=== PATIENT | female | born 1990 | race Caucasian/White ===

== ENCOUNTER → 2017-09-22 | Outpatient (CLI) | payer OTHER ==
[~2017-09-22] MED LIST: NICO21PAT TD; VENL37.52 PO; VENL75CA2 PO
--- NOTE | 2017-09-22 15:53 | REP ---
OB ULTRASOUND: Real-time sonographic evaluation of the gravid uterus is performed. There is a single living intrauterine gestation. Estimated gestational age is 18 weeks 5 days based on LMP with ADC 02/18/2018. Today's measurements indicate appropriate growth. BPD 39 mm = 17 weeks 5 days, 14th percentile HC 143 mm = 17 weeks 4 days, 7th percentile AC 127 mm = 18 weeks 2 days, 41st percentile FL 26 mm = 17 weeks 6 days, 23rd percentile HC/AC ratio 1.12, within normal range. Estimated weight 220 grams, 23rd percentile. Cervix is closed and measures 3.7 cm in length. heart rate 147 beats per minute. 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 position: Breech Placenta: Posterior and grade 0 with no previa or abruption. Amniotic fluid: Within normal limits. Signed by Jae Rodriguez MD 09/22/2017 03:57 P
== END ==
LOC: M SMT 13:01
PROVIDERS: ATTEND Obstetrics & Gynecology
DX: Z34.82 Encounter for supervision of other normal pregnancy, second trimester (principal)

== ENCOUNTER → 2017-09-29 | Outpatient (CLI) | payer OTHER | LOC: M SMT 09:59 | DX: Z36.89 Encounter for other specified antenatal screening (principal) | CPT/HCPCS: 36415 ==

== ENCOUNTER → 2017-11-24 | Outpatient (CLI) | payer OTHER ==
[2017-11-24 14:18] LABS: HEMATOCRIT 33.7 % (36.0-47.0); HEMOGLOBIN 11.3 g/dl (12.0-16.0); MEAN CORPUSCULAR HEMOGLOBIN 28.6 pg (27.0-33.0); MEAN CORPUSCULAR HGB CONC 33.5 g/dl (32.0-36.5); MEAN CORPUSCULAR VOLUME 85.3 fl (80.0-96.0); PLATELET COUNT, AUTOMATED 315 10^3/uL (150-450); RED BLOOD COUNT 3.95 10^6/uL (4.00-5.40); RED CELL DISTRIBUTION WIDTH 13.5 % (11.5-14.5); WHITE BLOOD COUNT 14.1 10^3/uL (4.0-10.0)
[2017-11-24 14:38] LABS: GLUCOSE CHALLENGE TEST 1 HOUR 158 MG/DL (LESS THAN 140)
[2017-11-27 08:55] LABS: RH ONLY RHOGAM 1 1
== END ==
LOC: M SMT 09:37
DX: Z34.82 Encounter for supervision of other normal pregnancy, second trimester (principal); Z36.89 Encounter for other specified antenatal screening
CPT/HCPCS: 82950

== ENCOUNTER → 2017-12-13 | Outpatient (CLI) | payer OTHER ==
[2017-12-13 08:45] LABS: GLUCOSE, FASTING 103 MG/DL (LESS THAN 95)
[2017-12-13 10:01] LABS: 1 HR GLUCOSE 162 MG/DL (LESS THAN 180)
[2017-12-13 10:47] LABS: 2 HR GLUCOSE 147 MG/DL (LESS THAN 155)
[2017-12-13 12:00] LABS: 3 HR GLUCOSE 121 MG/DL (LESS THAN 140)
== END ==
LOC: M LAB 07:51
DX: R73.02 Impaired glucose tolerance (oral) (principal)
CPT/HCPCS: 82951

== ENCOUNTER 2018-01-21 22:42 | Inpatient (IN) | payer OTHER ==
[2018-01-21] MEDS: LACTATED RINGER'S 1000 ML IV (23:15)
[2018-01-21] MEDS: LR 1,000 ML IV (23:15)
[2018-01-21 23:37] LABS: HEMATOCRIT 27.6 % (36.0-47.0); HEMOGLOBIN 9.3 g/dl (12.0-15.5); MEAN CORPUSCULAR HEMOGLOBIN 28.4 pg (27.0-33.0); MEAN CORPUSCULAR HGB CONC 33.7 g/dl (32.0-36.5); MEAN CORPUSCULAR VOLUME 84.4 fl (80.0-96.0); PLATELET COUNT, AUTOMATED 313 10^3/uL (150-450); RED BLOOD COUNT 3.27 10^6/uL (4.00-5.40); RED CELL DISTRIBUTION WIDTH 15.1 % (11.5-14.5); WHITE BLOOD COUNT 15.9 10^3/uL (4.0-10.0)
[2018-01-22] MEDS: LR 1,000 ML IV ×3 (03:29→12:15)
[2018-01-22] MEDS: PRENATAL VITAMINS CHEWABLE TABLET PO (09:00)
[2018-01-22] MEDS: BUPRENORPHINE/NALOXONE 2-0.5MG SUBLINGUAL TABLET(SUBOXONE) SL (09:20)
[2018-01-22] MEDS: BUPRENORPHINE/NALOXONE 8-2MG SUBLINGUAL TABLET(SUBOXONE) SL (09:20)
[2018-01-22] MEDS ORDERED: LR 1,000 ML IV (09:31)
[2018-01-22] MEDS ORDERED: BICITRA 30ML SOLN UDC As Ordered (09:52)
[2018-01-22 10:35] LABS: HEMATOCRIT 30.6 % (36.0-47.0); HEMOGLOBIN 10.6 g/dl (12.0-15.5); MEAN CORPUSCULAR HGB CONC 34.6 g/dl (32.0-36.5); MEAN CORPUSCULAR VOLUME 83.6 fl (80.0-96.0); PLATELET COUNT, AUTOMATED 221 10^3/uL (150-450); RED BLOOD COUNT 3.66 10^6/uL (4.00-5.40); RED CELL DISTRIBUTION WIDTH 15.2 % (11.5-14.5); WHITE BLOOD COUNT 10.3 10^3/uL (4.0-10.0)
[2018-01-22] MEDS: BICITRA 30ML SOLN UDC PO (10:37)
[2018-01-22] MEDS: LACTATED RINGER'S 1000 ML IV (10:44)
[2018-01-22] MEDS ORDERED: MORPHINE PRES-FREE INJ 10 MG/10 ML VIAL (J2274) As Ordered (10:45)
[2018-01-22] MEDS ORDERED: METOCLOPRAMIDE INJ 10MG/2ML VIAL (J2765) IV ×2 (10:52→12:15)
[2018-01-22] MEDS ORDERED: NALBUPHINE HCL 10 MG/ML AMP (J2300) IV (10:52)
[2018-01-22] MEDS ORDERED: NALOXONE INJ 0.4 MG/1 ML VIAL (J2310) IV ×2 (10:52)
[2018-01-22] MEDS ORDERED: ONDANSETRON 4MG/2ML VIAL (J2405) IV ×3 (10:52→12:15)
[2018-01-22] MEDS ORDERED: OXYTOCIN INJ 10 UNITS/ML VIAL (J2590) As Ordered (11:24)
[2018-01-22] MEDS ORDERED: PHENYLephrine HCL 500 MCG/5 ML (100MCG/ML) SYRINGE (J2370) As Ordered (11:24)
[2018-01-22] MEDS ORDERED: ePHEDrine SULFATE 25 MG/5 ML(5MG/ML) SYRINGE As Ordered (11:24)
[2018-01-22] MEDS ORDERED: dexameTHASONE 4 MG/ML 1ML VIAL (J1100) As Ordered (11:31)
[2018-01-22] MEDS ORDERED: ONDANSETRON 4MG/2ML VIAL (J2405) As Ordered (11:31)
[2018-01-22 11:33] LABS: CORD GAS ABE A -4.6; CORD GAS HCO3 A 22.7 MEQ/L; CORD GAS O2 SAT A 62.8 %; CORD GAS PCO2 A 50.5 mmHg; CORD GAS PO2 A 28.7 mmHg; CORD GAS SBC A 19.9 MEQ/L; CORD GAS TCO2 A 24.2 MEQ/L
[2018-01-22 11:35] LABS: CORD GAS ABE V -1.6; CORD GAS O2 SAT V 47.8 %; CORD GAS PCO2 V 49.6 mmHg; CORD GAS PH V 7.321 UNITS; CORD GAS PO2 V 20.8 mmHg; CORD GAS SBC V 21.9 MEQ/L; CORD GAS TCO2 V 26.6 MEQ/L
[2018-01-22] MEDS ORDERED: DOCUSATE SODIUM 100 MG CAP PO (12:00)
[2018-01-22] MEDS ORDERED: PERCOCET 5MG/325MG TAB PO (12:15)
[2018-01-22] MEDS ORDERED: fentaNYL 100 MCG/2 ML INJECTION (J3010) IV (12:15)
[2018-01-22] MEDS ORDERED: fentaNYL 100 MCG/2 ML INJECTION (J3010) As Ordered (12:28)
[2018-01-22 13:02] LABS: AMPHETAMINES URINE REFLEX NEGATIVE (NEGATIVE); BARBITURATES URINE REFLEX NEGATIVE (NEGATIVE); BENZODIAZEPINES URINE REFLEX NEGATIVE (NEGATIVE); CANNABINOIDS URINE REFLEX NEGATIVE (NEGATIVE); COCAINE METABOLITE URINE REFLE NEGATIVE (NEGATIVE); METHADONE URINE REFLEX NEGATIVE (NEGATIVE); OPIATES URINE REFLEX NEGATIVE (NEGATIVE); PHENCYCLIDINE URINE REFLEX NEGATIVE (NEGATIVE)
[2018-01-22] MEDS: MEASLES,MUMPS,RUBELLA VACCINE INJ (MMR-II) (90707) SC (13:12)
[2018-01-22] MEDS: PERCOCET 5MG/325MG TAB PO (15:43)
[2018-01-22] MEDS: KETOROLAC 30 MG/ML VIAL (J1885) IV (18:00)
[2018-01-23] MEDS: KETOROLAC 30 MG/ML VIAL (J1885) IV ×3 (00:20→12:31)
[2018-01-23 06:51] LABS: HEMATOCRIT 27.8 % (36.0-47.0); HEMOGLOBIN 9.4 g/dl (12.0-15.5); MEAN CORPUSCULAR HEMOGLOBIN 28.4 pg (27.0-33.0); MEAN CORPUSCULAR HGB CONC 33.8 g/dl (32.0-36.5); PLATELET COUNT, AUTOMATED 213 10^3/uL (150-450); RED BLOOD COUNT 3.31 10^6/uL (4.00-5.40); RED CELL DISTRIBUTION WIDTH 15.1 % (11.5-14.5)
[2018-01-23] MEDS: BUPRENORPHINE/NALOXONE 2-0.5MG SUBLINGUAL TABLET(SUBOXONE) SL (08:42)
[2018-01-23] MEDS: BUPRENORPHINE/NALOXONE 8-2MG SUBLINGUAL TABLET(SUBOXONE) SL (08:42)
[2018-01-23] MEDS: PRENATAL VITAMINS CHEWABLE TABLET PO (08:42)
[2018-01-23 13:17] LABS: FETAL SCREEN PROF. 1 1
[2018-01-23] MEDS: RHOGAM 300 MCG (1500 IU) INJ (J2790) IM (13:54)
[2018-01-23] MEDS ORDERED: IBUPROFEN 800 MG TAB PO (20:00)
== END 2018-01-23 14:55 | disposition home or self-care (01) | DRG 540 ==
LOC: M LDO 22:42 → M LDI 01-22 09:34 → M OBS 01-22 13:37
PROC: 10D00Z1 Extraction of Products of Conception, Low, Open Approach (ICD-10-PCS; principal; 2018-01-22 10:51)
DX: O76 Abnormality in fetal heart rate and rhythm complicating labor and delivery (principal); F17.200 Nicotine dependence, unspecified, uncomplicated; O36.8130 Decreased fetal movements, third trimester, not applicable or unspecified; Z37.0 Single live birth; Z3A.35 35 weeks gestation of pregnancy; O99.334 Smoking (tobacco) complicating childbirth; O28.8 Other abnormal findings on antenatal screening of mother; O35.8XX0 Maternal care for other (suspected) fetal abnormality and damage, not applicable or unspecified

== ENCOUNTER → 2020-06-05 | Outpatient (REF) | payer OTHER ==
[~2020-06-05] MED LIST changes: +BUPRENORPHINE PO; +IBUP-1114 PO; +NALOXONE PO; +PERC5TAB12 PO; +PRENTAB9 PO; +ZANTAC 150 MG PO
[2020-06-05 21:26] LABS: CHLAMYDIA DNA AMPLIFICATION NEGATIVE (NEGATIVE); GC DNA AMPLIFICATION NEGATIVE (NEGATIVE)
== END ==
LOC: M SFHCLUC 18:14
PROVIDERS: ATTEND Physician Assistant
DX: R30.0 Dysuria (principal); N89.8 Other specified noninflammatory disorders of vagina